=== PATIENT | male | born 2000 | race Caucasian/White ===

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

== ENCOUNTER → 2023-09-10 | Outpatient (CLI) | payer OTHER ==
[~2023-09-10] MED LIST: ISOVUE-300 61% 100ML VIAL As Ordered ONE; LIDOCAINE 1% MDV 20ML VIAL As Ordered ONE; PROHANCE 279.3MG/ML 5ML VIAL As Ordered ONE
== END ==
LOC: M RAD 06:47
PROVIDERS: ATTEND Orthopaedic Surgery
DX: M75.22 Bicipital tendinitis, left shoulder (principal)
CPT/HCPCS: 23350; 73223; 77002; A9576; Q9967

== ENCOUNTER 2024-01-02 09:12 | Day surgery (SDC) | payer OTHER ==
[~2024-01-02] VITALS: Ht 188 cm; Wt 79.7 kg
[~2024-01-02 09:12] MED LIST changes: -ISOVUE-300 61% 100ML VIAL As Ordered ONE; -LIDOCAINE 1% MDV 20ML VIAL As Ordered ONE; -PROHANCE 279.3MG/ML 5ML VIAL As Ordered ONE; +TRANEXAMIC ACID 100 MG/ML 10ML VIAL IV ONE
[2024-01-02] MEDS ORDERED: propofoL 200 MG/20 ML VIAL As Ordered ONE (09:25)
[2024-01-02] MEDS ORDERED: ONDANSETRON 4MG 2ML VIAL As Ordered ONE (09:25)
[2024-01-02] MEDS ORDERED: ACETAMINOPHEN 1000MG/100ML IV BAG As Ordered ONE (09:25)
[2024-01-02] MEDS ORDERED: LIDOCAINE 2% 100MG/5ML SDV (FOR ANES.) As Ordered ONE (09:25)
[2024-01-02] MEDS ORDERED: SUGAMMADEX SODIUM 500 MG/5 ML VIAL (BRIDION) As Ordered ONE (09:31)
[2024-01-02] MEDS ORDERED: ROCURONIUM BROMIDE 50MG/5ML VIAL As Ordered ONE (09:31)
[2024-01-02] MEDS ORDERED: LR 1,000 ML IV SCH (09:50)
[2024-01-02] MEDS: MIDAZOLAM INJ 2MG/2ML VIAL IV PRN (10:21)
[2024-01-02] MEDS: LIDOCAINE 1% SDV 5ML VIAL PN ONE (10:24)
[2024-01-02] MEDS: dexAMETHasone 10MG/1ML VIAL PRES.FREE PN ONE (10:24)
[2024-01-02] MEDS: ROPIvacaine 0.5% 30ML VIAL PN ONE (10:24)
[2024-01-02] MEDS: ceFAZolin SOD 2 GM in IV 1 EA IV ONE (10:40)
[2024-01-02] MEDS: TRANEXAMIC ACID 100 MG/ML 10ML VIAL As Ordered ONE (11:20)
[2024-01-02] MEDS: EPINEPHrine INJ 1 MG/ML 1ML AMP As Ordered ONE (12:00)
[2024-01-02] MEDS: VANCOMYCIN 1000MG/20ML VIAL As Ordered ONE (12:00)
[2024-01-02] MEDS: LIDOCAINE W/EPINEPHRINE 1% 20ML VIAL As Ordered ONE (12:00)
[2024-01-02] MEDS ORDERED: oxyCODONE 5MG TAB PO PRN (12:45)
[2024-01-02] MEDS ORDERED: ONDANSETRON 4MG 2ML VIAL IV PRN (12:45)
[2024-01-02] MEDS ORDERED: fentaNYL 100 MCG/2 ML INJECTION IV PRN (12:45)
[2024-01-02 13:26] VITALS: BP 133/74; TEMP 97.3; O2SAT 98
== END 2024-01-02 14:03 | disposition home or self-care (01) ==
LOC: M SDC 09:12
PROVIDERS: ATTEND Orthopaedic Surgery
DX: M75.42 Impingement syndrome of left shoulder (principal); M25.312 Other instability, left shoulder; M75.52 Bursitis of left shoulder; M67.814 Other specified disorders of tendon, left shoulder
CPT/HCPCS: 29822; J0131; J0171; J0690; J1100; J2250; J2405; J3370